=== PATIENT | male | born 1955 | race Caucasian/White ===

== ENCOUNTER → 2018-04-30 14:10 | Outpatient (REF) | payer OTHER, SELFPAY ==
[2018-04-30 14:27] LABS: BUN Creatinine Ratio 31.3 (6-22); Blood Urea Nitrogen 25 mg/dL (9-20); Carbon Dioxide 27 mmol/L (22-32); Chloride 98 mmol/L (98-107); Estimated Glomerular Filt Rate > 60.0 mL/min (>60); Glucose 280 mg/dL (80-110); HEMOLYSIS 15 (0-50); Potassium 4.6 mmol/L (3.4-5.1); Sodium 137 mmol/L (137-145)
[2018-04-30 14:30] LABS: Hemoglobin A1C% w Est Avg Glu 13.3 % (4.0-6.0)
[2018-04-30 14:59] LABS: B Type Natriuretic Peptide < 100.0 (<100)
== END ==
LOC: LAB 14:10
PROVIDERS: Visit Provider Internal Medicine
DX: I48.91 Unspecified atrial fibrillation (principal); I48.2 Chronic atrial fibrillation; E11.9 Type 2 diabetes mellitus without complications; E78.00 Pure hypercholesterolemia, unspecified; I50.20 Unspecified systolic (congestive) heart failure
CPT/HCPCS: 80048; 83036; 83880

== ENCOUNTER → 2018-09-21 17:38 | Outpatient (CLI) | payer OTHER, SELFPAY ==
--- NOTE | 2018-09-21 | DI.RAD.S_ITS ---
PROCEDURE: XR FOOT RT MIN 3V INDICATIONS: r/o osteomyelitis TECHNIQUE: 3 views of the foot were acquired. COMPARISON: None. FINDINGS: Bones: No fractures or dislocations. No suspicious bony lesions. Diffuse hindfoot and midfoot degenerative spurring/sclerosis. Posterior and plantar calcaneal spurring. Mild first MTP joint degeneration. No focal osseous destruction Soft tissues: No tibiotalar joint effusion. Achilles tendon appears normal. Diffuse vascular calcifications. IMPRESSION: No focal osseous destruction to suggest advanced osteomyelitis. If there is persistent clinical concern, continued short interval radiographic followup or contrast enhanced MRI could be performed to assess for early infection. Dictated by: Amauri Hancock M.D. on 09/22/2018 at 9:27 Approved by: Amauri Hancock M.D. on 09/22/2018 at 9:30
== END ==
PROVIDERS: Visit Provider Physician Assistant
DX: S91.301D Unspecified open wound, right foot, subsequent encounter (principal); L03.90 Cellulitis, unspecified
CPT/HCPCS: 73630

== ENCOUNTER → 2018-09-29 15:46 | Outpatient (CLI) | payer OTHER, SELFPAY ==
--- NOTE | 2018-09-29 | DI.US.S_ITS ---
PROCEDURE: US ARTERIAL DUPLEX LE RT INDICATIONS: PERIPHERAL VASCULAR DISEASE TECHNIQUE: Color and pulse Doppler interrogation was performed of the right lower extremity arterial system, with image documentation. COMPARISON: None. FINDINGS: Common femoral artery: 101 cm/sec, with triphasic flow. Deep femoral artery: 72 cm/sec, with triphasic flow. Proximal superficial femoral artery: 103 cm/sec, with triphasic flow. Mid superficial femoral artery: 80 cm/sec, with triphasic flow. Distal superficial femoral artery: 71 cm/sec, with triphasic flow. Popliteal artery: 79 cm/sec, with triphasic flow. Posterior tibial artery: 82 cm/sec, with monophasic flow. Anterior tibial artery/dorsalis pedis: 212 cm/sec, with monophasic flow. Luna-scale imaging description: Moderate scattered plaque and severe circumferential plaque seen within the small vessels. IMPRESSION: 1. No hemodynamically significant stenosis from the common femoral through the distal popliteal arteries. 2. Circumferential plaque present within the calf vessels with increased velocities consistent with small vessel disease. Dictated by: Gerardo Sahni [facility] Interpreted: Scarlet Santiago MD on 09/30/2018 at 9:07 Approved by: Scarlet Santiago MD, PhD on 09/30/2018 at 11:08
== END ==
PROVIDERS: PCP Physician Assistant; Visit Provider Physician Assistant
DX: I73.9 Peripheral vascular disease, unspecified (principal)
CPT/HCPCS: 93926